=== PATIENT | male | born 1990 | race Two or more races ===

== ENCOUNTER 2020-12-13 13:30 | Emergency (ER) | payer OTHER ==
[~2020-12-13] VITALS: Ht 177.8 cm; Wt 113.4 kg
[2020-12-13 13:32] VITALS: BP 139/75
[2020-12-13] MEDS ORDERED: ONDANSETRON HCL 4 MG/2 ML VIAL IV ONE (14:30)
[2020-12-13] MEDS ORDERED: SODIUM CHLORIDE 0.9% 1,000 ML IVB ONE (14:30)
[2020-12-13 14:51] LABS: Eosinophils # (auto) 0.1 10 ^3/uL (0-0.8); Eosinophils % (auto) 0.6 % (0.0-7.0); Mean Corpuscular Hemoglobin 32.1 pg (28.0-32.0); Monocytes # (auto) 1.3 10 ^3/uL (0-1.3); Platelet Count (auto) 295 10^3/uL (140-450)
[2020-12-13 14:53] LABS: Basophils # (auto) 0.2 10 ^3/uL (0-0.2); Hematocrit 53.5 % (41.0-53.0); Hemoglobin 19.2 g/dL (13.5-17.5); Lymphocytes # (auto) 3.6 10 ^3/uL (0.4-5.4); Lymphocytes % (auto) 21.3 % (10.0-50.0); Mean Corpuscular Hgb Conc. 35.9 g/dL (32.0-36.0); Mean Corpuscular Volume 89.4 fL (80.0-100.0); Monocytes % (auto) 7.9 % (0.0-12.0); Neutrophils # (auto) 11.6 10 ^3/uL (1.6-8.6); Neutrophils % (auto) 69.2 % (37.0-80.0); Nucleated Red Blood Cells % 1.6 %; Red Blood Cells 5.99 10^6/uL (4.5-5.90); Red Cell Distribution Width 12.6 % (11.8-14.3); White Blood Cell 16.7 10^3/uL (4.4-10.8)
[2020-12-13 15:09] LABS: Alanine Aminotransferase 248 U/L (16-61); Albumin 4.6 g/dL (3.4-5.0); Anion Gap 9 (5-15); Aspartate Aminotransferase 374 U/L (15-37); BUN/Creatinine Ratio 12.7; Blood Urea Nitrogen 26 mg/dL (7-18); Calcium 10.1 mg/dL (8.5-10.1); Carbon Dioxide 24 mmol/L (21-32); Chloride 101 mmol/L (98-107); GFR African American 49 mL/min; GFR Non-African American 40 mL/min; Glucose 88 mg/dL (74-106); Magnesium 2.5 mg/dL (1.6-2.6); Potassium 4.1 mmol/L (3.5-5.1); Sodium 134 mmol/L (136-145)
[2020-12-13 15:12] LABS: Alkaline Phosphatase 88 U/L (45-117)
== END 2020-12-13 17:00 | disposition left against medical advice (07) ==
LOC: ER 13:30
DX: R11.2 Nausea with vomiting, unspecified (principal); R51.9 Headache, unspecified; M79.10 Myalgia, unspecified site; Z53.21 Procedure and treatment not carried out due to patient leaving prior to being seen by health care provider
CPT/HCPCS: 36415; 74176; 80053; 83690; 83735; 85025